=== PATIENT | male | born 1995 | race Caucasian/White ===

== ENCOUNTER 2023-08-16 20:37 | Emergency (ER) | payer OTHER ==
[2023-08-16 20:42] VITALS: BP 102/71; PULSE 95; RESP 20; TEMP 98.8; BMI 32.5
[2023-08-16] MEDS: IBUPROFEN 600 MG TABLET (FP) PO ONE (22:29)
== END 2023-08-16 22:33 | disposition left against medical advice (07) ==
LOC: JERFT 20:37
DX: M25.512 Pain in left shoulder (principal); M25.561 Pain in right knee; V49.20XA Unspecified car occupant injured in collision with unspecified motor vehicles in nontraffic accident, initial encounter; Y92.093 Driveway of other non-institutional residence as the place of occurrence of the external cause
CPT/HCPCS: 99283-25